=== PATIENT | female | born 1940 | race African-American/Black ===

== ENCOUNTER 2017-07-20 12:23 | Emergency (ER) | payer SELFPAY ==
[~2017-07-20] VITALS: Ht 162.6 cm; Wt 89.0 kg
[2017-07-20 14:00] VITALS: BP 158/77
== END 2017-07-20 14:06 | disposition home or self-care (01) ==
LOC: ER 13:57
DX: B02.9 Zoster without complications (principal); I10 Essential (primary) hypertension
CPT/HCPCS: 99283